=== PATIENT | male | born 1980 | race Caucasian/White ===

== ENCOUNTER 2023-05-05 06:42 | Emergency (ER) | payer SELFPAY ==
[2023-05-05] MEDS ORDERED: LACTATED RINGERS 1,000 ML 1,000 ML IV ONE (07:00)
[2023-05-05] MEDS ORDERED: PANTOPRAZOLE INJECTION 40 MG VIAL IV ONE (07:15)
[2023-05-05] MEDS ORDERED: ONDANSETRON INJECTION 4 MG/2 ML (SDV) IVP ONE (07:15)
[2023-05-05 07:18] LABS: BASOPHILS # (AUTO) 0.1 10^3/uL (0.0-0.1); BASOPHILS % (AUTO) 1 % (0-10); EOSINOPHILS # (AUTO) 0.1 10^3/uL (0.0-0.3); EOSINOPHILS % (AUTO) 1 % (0-10); HEMATOCRIT 46 % (40-54); HEMOGLOBIN 16.2 g/dL (13.3-17.7); LYMPHOCYTES # (AUTO) 1.2 10^3/uL (1.0-4.0); LYMPHOCYTES % (AUTO) 15 % (12-44); MEAN CORPUSCULAR HEMOGLOBIN 34 pg (25-34); MEAN CORPUSCULAR HGB CONC 35 g/dL (32-36); MEAN CORPUSCULAR VOLUME 97 fL (80-99); MONOCYTES # (AUTO) 0.5 10^3/uL (0.0-1.0); MONOCYTES % (AUTO) 7 % (0-12); NEUTROPHILS # (AUTO) 5.9 10^3/uL (1.8-7.8); NEUTROPHILS % (AUTO) 76 % (42-75); PLATELET COUNT 267 10^3/uL (130-400); WHITE BLOOD COUNT 7.8 10^3/uL (4.3-11.0)
--- NOTE | 2023-05-05 07:21 | ED General ---
General Chief Complaint: Abdominal/GI Problems Stated Complaint: SOA/BODY TINGLING/NUMB/VOMITING Nursing Triage Note: TO ED VIA POV AND REQUEST W/C TO ROOM 6. PT STATES, "I'VE BEEN PUKING NON-STOP ON THE WAY TO WORK". 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 PT DENIES ABD PAIN, DENIES DIARRHEA. PT ALSO STATES, "MY WHOLE BODY FEELS NUMB". PT KEEPS EYES CLOSED THROUGH ENTIRETY OF TRIAGE. Source of Information: Patient Exam Limitations: No Limitations History of Present Illness Date Seen by Provider: May 05, 2023 Time Seen by Provider: 06:51 Initial Comments This 43-year-old man presents to the emergency room via private vehicle with complaints of lightheadedness and diffuse sensation of numbness. Symptoms began about 45 minutes prior to interview with intense vomiting. He reports his emesis was brown but he did not notice any coffee-ground emesis or hematemesis. After vomiting he felt lightheaded, numb, and short of breath. He denies any fever, chest pain, chills, or other symptoms of infectious illness. He denies abdominal pain or TTP. He does report drinking about a pint of hard alcohol at least 5 days/week. His last drink was last night. He also uses marijuana. He is moderately hypertensive on arrival. Vital signs are otherwise unremarkable. He is alert and oriented. Allergies and Home Medications Allergies Coded Allergies: No Known Drug Allergies (Unverified , 05/05/23) Patient Home Medication List Home Medication List Reviewed: Yes Ondansetron (Ondansetron Odt) 4 Mg Tab.rapdis, 4 MG SL Q4H PRN for NAUSEA/VOMITING Prescribed by: CHINMAY SIMON on 05/05/23 0836 Review of Systems Review of Systems Constitutional: see HPI EENTM: other (Dry mouth) Respiratory: see HPI Cardiovascular: no symptoms reported Gastrointestinal: see HPI Genitourinary: no symptoms reported Musculoskeletal: no symptoms reported Skin: no symptoms reported Psychiatric/Neurological: See HPI Hematologic/Lymphatic: No Symptoms Reported Immunological/Allergic: no symptoms reported Past Hzbkurr-Xzuroi-Qrqrqr Hx Patient Social History Tobacco Use?: Yes Tobacco type used: Cigarettes Smoking Status: Current Everyday Smoker Substance use?: Yes Substance type: Marijuana Alcohol Use?: Yes Alcohol type: Hard Liquor Alcohol Frequency: Daily (at least 5 days per week) Immunizations Up To Date 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 oz. kg; BMI Method: General Appearance: No Apparent Distress, WD/WN, Thin HEENT: PERRL/EOMI, Normal ENT Inspection, Other (Oropharynx dry) Neck: Normal Inspection Respiratory: Lungs Clear, Normal Breath Sounds, No Accessory Muscle Use Cardiovascular: Regular Rate, Rhythm, No Edema, No Murmur Gastrointestinal: Non Tender, Soft; No Distended Extremity: Normal Inspection, No Pedal Edema Neurologic/Psychiatric: Alert, Oriented x3, No Motor/Sensory Deficits, Normal Mood/Affect Skin: Normal Color, Warm/Dry Progress/Results/Core Measures Suspected Sepsis SIRS Temperature: Pulse: 88 Respiratory Rate: 16 Laboratory Tests 05/05/23 07:15: White Blood Count 7.8 Blood Pressure 149 /109 Mean: 122 Laboratory Tests 05/05/23 07:15: Creatinine 1.01, INR Comment 1.0, Platelet Count 267, Total Bilirubin 0.5 Results/Orders Lab Results Laboratory Tests Test 05/05/23 07:15 05/05/23 07:23 05/05/23 07:52 Range/Units White Blood Count 7.8 4.3-11.0 10^3/uL Red Blood Count 4.76 4.30-5.52 10^6/uL Hemoglobin 16.2 13.3-17.7 g/dL Hematocrit 46 40-54 % Mean Corpuscular Volume 97 80-99 fL Mean Corpuscular Hemoglobin 34 25-34 pg Mean Corpuscular Hemoglobin Concent 35 32-36 g/dL Red Cell Distribution Width 13.8 10.0-14.5 % Platelet Count 267 130-400 10^3/uL Mean Platelet Volume 9.0 9.0-12.2 fL Immature Granulocyte % (Auto) 0 % Neutrophils (%) (Auto) 76 H 42-75 % Lymphocytes (%) (Auto) 15 12-44 % Monocytes (%) (Auto) 7 0-12 % Eosinophils (%) (Auto) 1 0-10 % Basophils (%) (Auto) 1 0-10 % Neutrophils # (Auto) 5.9 1.8-7.8 10^3/uL Lymphocytes # (Auto) 1.2 1.0-4.0 10^3/uL Monocytes # (Auto) 0.5 0.0-1.0 10^3/uL Eosinophils # (Auto) 0.1 0.0-0.3 10^3/uL Basophils # (Auto) 0.1 0.0-0.1 10^3/uL Immature Granulocyte # (Auto) 0.0 0.0-0.1 10^3/uL Prothrombin Time 13.0 12.2-14.7 SEC INR Comment 1.0 0.8-1.4 Sodium Level 140 135-145 MMOL/L Potassium Level 3.8 3.6-5.0 MMOL/L Chloride Level 107 98-107 MMOL/L Carbon Dioxide Level 23 21-32 MMOL/L Anion Gap 10 5-14 MMOL/L Blood Urea Nitrogen 7 7-18 MG/DL Creatinine 1.01 0.60-1.30 MG/DL Estimat Glomerular Filtration Rate 93 BUN/Creatinine Ratio 7 Glucose Level 108 H 70-105 MG/DL Calcium Level 8.8 8.5-10.1 MG/DL Corrected Calcium 8.6 8.5-10.1 MG/DL Magnesium Level 2.1 1.6-2.4 MG/DL Total Bilirubin 0.5 0.1-1.0 MG/DL Aspartate Amino Transf (AST/SGOT) 50 H 5-34 U/L Alanine Aminotransferase (ALT/SGPT) 44 0-55 U/L Alkaline Phosphatase 77 40-136 U/L Total Protein 7.1 6.4-8.2 GM/DL Albumin 4.3 3.2-4.5 GM/DL Serum Alcohol 22 H <10 MG/DL Influenza Type A (RT-PCR) Not Detected Not Detecte Influenza Type B (RT-PCR) Not Detected Not Detecte SARS-CoV-2 RNA (RT-PCR) Not Detected Not Detecte Urine Color YELLOW Urine Clarity CLEAR Urine pH 7.0 5-9 Urine Specific [place] 1.025 H 1.016-1.022 Urine Protein NEGATIVE NEGATIVE Urine Glucose (UA) NEGATIVE NEGATIVE Urine Ketones NEGATIVE NEGATIVE Urine Nitrite NEGATIVE NEGATIVE Urine Bilirubin NEGATIVE NEGATIVE Urine Urobilinogen 1.0 < = 1.0 MG/DL Urine Leukocyte Esterase NEGATIVE NEGATIVE Urine RBC (Auto) NEGATIVE NEGATIVE Urine RBC NONE /HPF Urine WBC NONE /HPF Urine Squamous Epithelial Cells NONE /HPF Urine Crystals NONE /LPF Urine Bacteria NEGATIVE /HPF Urine Casts NONE /LPF Urine Mucus NEGATIVE /LPF Urine Culture Indicated NO Urine Opiates Screen NEGATIVE NEGATIVE Urine Oxycodone Screen NEGATIVE NEGATIVE Urine Methadone Screen NEGATIVE NEGATIVE Urine Propoxyphene Screen NEGATIVE NEGATIVE Urine Barbiturates Screen NEGATIVE NEGATIVE Ur Tricyclic Antidepressants Screen NEGATIVE NEGATIVE Urine Phencyclidine Screen NEGATIVE NEGATIVE Urine Amphetamines Screen POSITIVE H NEGATIVE Urine Methamphetamines Screen POSITIVE H NEGATIVE Urine Benzodiazepines Screen NEGATIVE NEGATIVE Urine Cocaine Screen NEGATIVE NEGATIVE Urine Cannabinoids Screen POSITIVE H NEGATIVE My Orders Orders - CHINMAY LOBO MD Alcohol (05/05/23 06:59) Cbc With Automated Diff (05/05/23 06:59) Comprehensive Metabolic Panel (05/05/23 06:59) Drug Screen Stat (Urine) (05/05/23 06:59) Magnesium (05/05/23 06:59) Protime With Inr (05/05/23 06:59) Ua Culture If Indicated (05/05/23 06:59) Ed Iv/Invasive Line Start (05/05/23 06:59) Lactated Ringers 1,000 Ml (Lactated Ring (05/05/23 07:00) Ondansetron Injection (Ondansetron Inj (05/05/23 07:15) Pantoprazole Injection (Pantoprazole Inj (05/05/23 07:15) Covid 19 Inhouse Test (05/05/23 07:21) Influenza A And B By Pcr (05/05/23 07:21) Orthostatic Vital Signs (Adult (05/05/23 08:05) Ns Iv 500 Ml (Ns Iv 500 Ml) (05/05/23 08:30) Medications Given in ED Vital Signs/I&O 05/05/23 05/05/23 05/05/23 05/05/23 06:47 06:47 08:11 09:07 Temp 36.7 Pulse 88 73 73 85 89 Resp 16 18 B/P (MAP) 149/109 (122) 125/90 (102) 120/98 124/96 (105) 120/98 (105) Pulse Ox 96 96 O2 Delivery Room Air Room Air Capillary Refill : Less Than 3 Seconds Blood Pressure Mean: 122 Progress Note #1: Time: 07:22 Progress Note Patient was interviewed and examined shortly after arrival during the triage process. Labs are being processed. A liter of LR is being infused. Patient is being treated with Zofran and Protonix given his intense vomiting earlier and excessive alcohol consumption. Further treatment and evaluation will be based on his response to treatment and his lab results. Influenza and COVID-19 swab is also pending. Progress Note #2: Time: 08:31 Progress Note Swabs for flu and COVID were negative. CBC and CMP were clinically unremarkable by my interpretation. Toxicology screen was positive for amphetamine, methamphetamine, and THC. Patient admitted to "doing a few lines [of meth] 2 or 3 days ago." Alcohol level was 22. INR was normal at 1.0. Urinalysis was unremarkable. I addressed the substance abuse with the patient. I encouraged him to taper off his alcohol consumption and to immediately stop methamphetamine use. Health and social consequences of using these substances were discussed. He is being referred to some resources in the discharge instructions. He is feeling much better after treatment. He was still slightly lightheaded when he stood up for orthostatic vital signs. Orthostatic vital signs were unremarkable and were reviewed by me. He will receive an additional 500 mL normal saline bolus and oral fluids before discharge. If he is still feeling well, he will then be dismissed with a prescription for Zofran. See discharge instructions for further discussion. Departure Impression Primary Impression: Nausea and vomiting Qualified Codes: R11.2 - Nausea with vomiting, unspecified Additional Impressions: Lightheadedness Polysubstance abuse Disposition: 01 HOME, SELF-CARE Condition: Improved Departure-Patient Inst. Decision time for Depature: 08:34 Referrals: NO,LOCAL PHYSICIAN (PCP/Family) Primary Care Physician Patient Instructions: ALCOHOL AND SUBSTANCE ABUSE Add. Discharge Instructions: Start with a noncarbonated clear liquid diet. Gradually advance your diet with small quantities of bland food as tolerated. You may use the Zofran (ondansetron) as prescribed for nausea or vomiting. Gradually taper off on your alcohol consumption. Excessive alcohol consumption will eventually cause significant health consequences such as stomach ulcers, liver failure, alcohol withdraw, etc. Do not abruptly stop alcohol consumption as this may cause life-threatening alcohol withdraw and seizures. Gradually taper off of your alcohol consumption over several days or a few weeks. Immediately discontinue use of illicit substances such as methamphetamine. If you are unable to discontinue the substances on your own immediately, please seek assistance from a substance abuse treatment source. Some local resources include [facility] at [phone] or the [facility] at [phone]. Return to the emergency room if you have worsening symptoms despite following these instructions. All discharge instructions reviewed with patient and/or family. Voiced understanding. Scripts Ondansetron (Ondansetron Odt) 4 Mg Tab.rapdis 4 MG SL Q4H PRN for NAUSEA/VOMITING, #10 TAB Prov: CHINMAY LOBO MD 05/05/23 CHINMAY LOBO MD May 05, 2023 07:21
[2023-05-05 07:48] LABS: ALBUMIN 4.3 GM/DL (3.2-4.5); BILIRUBIN,TOTAL 0.5 MG/DL (0.1-1.0); CALCIUM 8.8 MG/DL (8.5-10.1); CREATININE SERUM 1.01 MG/DL (0.60-1.30); MAGNESIUM 2.1 MG/DL (1.6-2.4); POTASSIUM 3.8 MMOL/L (3.6-5.0); TOTAL PROTEIN 7.1 GM/DL (6.4-8.2)
[2023-05-05 08:11] VITALS: BP_SYST 120; BP_SYST 124; BP_SYST 125; BP_DIAS 90; BP_DIAS 96; BP_DIAS 98
[2023-05-05 08:12] LABS: AMPHETAMINE SCREEN, URINE POSITIVE (NEGATIVE); BARBITURATE SCREEN URINE NEGATIVE (NEGATIVE); BENZODIAZEPINES SCREEN URINE NEGATIVE (NEGATIVE); CANNABINOID SCREEN, URINE POSITIVE (NEGATIVE); COCAINE SCREEN URINE NEGATIVE (NEGATIVE); METHADONE STAT NEGATIVE (NEGATIVE); OPIATE SCREEN URINE NEGATIVE (NEGATIVE); OXYCODONE STAT NEGATIVE (NEGATIVE); PROPOXYPHENE STAT NEGATIVE (NEGATIVE); TRICYCLIC ANTIDEPRESSANTS SCRE NEGATIVE (NEGATIVE)
[2023-05-05 08:13] LABS: BACTERIA,URINE NEGATIVE /HPF; BILIRUBIN,URINE NEGATIVE (NEGATIVE); CLARITY,URINE CLEAR; COLOR,URINE YELLOW; GLUCOSE, URINE (UA) NEGATIVE (NEGATIVE); KETONES,URINE NEGATIVE (NEGATIVE); LEUKOCYTE ESTERASE ,URINE NEGATIVE (NEGATIVE); NITRITE,URINE NEGATIVE (NEGATIVE); PROTEIN,URINE NEGATIVE (NEGATIVE)
[2023-05-05] MEDS ORDERED: NS IV 500 ML 500 ML IV ONE (08:30)
[2023-05-05] MEDS ORDERED: ONDA4TAB11 SL (08:36)
[2023-05-05 09:07] VITALS: BP 120/98
== END 2023-05-05 09:07 | disposition home or self-care (01) ==
LOC: ER 06:46
DX: R11.2 Nausea with vomiting, unspecified (principal); R42 Dizziness and giddiness; F19.10 Other psychoactive substance abuse, uncomplicated; F17.210 Nicotine dependence, cigarettes, uncomplicated; Z28.310 Unvaccinated for COVID-19; Z20.822 Contact with and (suspected) exposure to COVID-19
CPT/HCPCS: 80053; 80306; 81000; 83735; 85025; 85610; 87636; G0480; 36415; 80320